=== PATIENT | male | born 1965 | race Caucasian/White ===

== ENCOUNTER → 2018-07-03 08:05 | Outpatient (CLI) | payer OTHER, SELFPAY ==
[2018-07-03 09:41] LABS: Alanine Aminotransferase 45 IU/L (21-72); Albumin 4.5 g/dL (3.5-5.0); Alkaline Phosphatase 44 U/L (38-126); Aspartate Aminotransferase 25 IU/L (17-59); BUN Creatinine Ratio 18.8 (6-22); Bilirubin Total 0.4 mg/dL (0.2-1.3); Blood Urea Nitrogen 15 mg/dL (9-20); Calcium 9.2 mg/dL (8.4-10.2); Carbon Dioxide 30 mmol/L (22-32); Chloride 100 mmol/L (98-107); Cholesterol 172 mg/dL (140-199); Estimated Glomerular Filt Rate > 60.0 mL/min (>60); Globulin 2.3 g/dL (1.7-4.1); Glucose 100 mg/dL (70-100); HDL Cholesterol 50 mg/dL (40-60); HEMOLYSIS < 15 (0-50); LDL Cholesterol Calculated 115 mg/dL (<100); Potassium 4.5 mmol/L (3.4-5.1); Sodium 143 mmol/L (137-145); Total Protein 6.8 g/dL (6.3-8.2); Triglycerides 37 mg/dL (35-150)
== END ==
PROVIDERS: PCP Internal Medicine; Visit Provider Internal Medicine
DX: E78.5 Hyperlipidemia, unspecified (principal)
CPT/HCPCS: 36415; 80053; 80061

== ENCOUNTER → 2019-02-17 12:30 | Outpatient (CLI) | payer OTHER, SELFPAY ==
[2019-02-17 12:55] LABS: Add Manual Diff / Slide Review NO; Basophils Absolute Auto 0 /uL (0-100); Basophils Percent Auto 0.6 % (0-2); Eosinophils Absolute Auto 100 /uL (0-450); Hematocrit 38.3 % (41-53); Hemoglobin 13.2 g/dL (13.5-17.5); Lymphocytes Absolute Auto 1400 /uL (1100-4500); Lymphocytes Percent Auto 21.9 % (25-40); Mean Corpuscular HGB Conc 34.4 % (30-36); Mean Corpuscular Hemoglobin 29.6 PG (26-34); Mean Corpuscular Volume 86.1 fL (80-100); Monocytes Absolute Auto 300 /uL (0-900); Monocytes Percent Auto 4.4 % (3-14); Neutrophils Absolute Auto 4600 /uL (1500-7000); Neutrophils Percent Auto 72.1 % (50-75); Platelet Count 257 X10^3/uL (150-400); Red Blood Cell Count 4.45 X10^6/uL (4.5-5.9); Red Cell Distribution Width 13.2 % (11.6-14.8); White Blood Cell Count 6.4 X10^3/uL (4.5-11.0)
[2019-02-17 13:52] LABS: Alanine Aminotransferase 25 IU/L (21-72); Albumin Globulin Ratio 1.7 (1.0-2.8); Alkaline Phosphatase 51 U/L (38-126); Aspartate Aminotransferase 18 IU/L (17-59); BUN Creatinine Ratio 18.6 (6-22); Bilirubin Total 0.4 mg/dL (0.2-1.3); Blood Urea Nitrogen 13 mg/dL (9-20); Calcium 9.2 mg/dL (8.4-10.2); Carbon Dioxide 30 mmol/L (22-32); Chloride 103 mmol/L (98-107); Estimated Glomerular Filt Rate > 60.0 mL/min (>60); Globulin 2.4 g/dL (1.7-4.1); Glucose 91 mg/dL (70-100); HEMOLYSIS < 15 (0-50); Lipase 117 U/L (23-300); Potassium 4.4 mmol/L (3.4-5.1); Sodium 140 mmol/L (137-145); Total Protein 6.4 g/dL (6.3-8.2)
== END ==
PROVIDERS: Family Provider Internal Medicine; PCP Internal Medicine; Visit Provider Physician Assistant
DX: R19.5 Other fecal abnormalities (principal)
CPT/HCPCS: 36415; 80053; 83690; 85025

== ENCOUNTER → 2019-02-19 08:54 | Outpatient (CLI) | payer OTHER, SELFPAY ==
[2019-02-19 10:48] LABS: Occult Blood 1 Negative (Negative)
[2019-02-19 10:49] LABS: Occult Blood 2 Negative (Negative)
[2019-02-19 10:50] LABS: Occult Blood 3 Negative (Negative)
[2019-02-25 19:57] LABS: Calprotectin, Stool 223.7 mcg/g
== END ==
PROVIDERS: Physician Assistant; Family Provider Internal Medicine; PCP Internal Medicine; Visit Provider Internal Medicine
DX: R19.5 Other fecal abnormalities (principal)
CPT/HCPCS: 82270; 83993; 87045; 87177; 87493; 87899

== ENCOUNTER 2020-04-04 14:27 | Emergency (ER) | payer OTHER, SELFPAY ==
--- NOTE | 2020-04-04 14:54 | ED_ITS ---
HPI - Animal Bite General Chief Complaint: Allergic Reaction Stated Complaint: stung by hornets Time Seen by Provider: 04/04/20 14:42 History of Present Illness HPI narrative: CC: stung by hornets back of left leg HPI: The patient is a 54-year-old male who states that he was stung by a hornets on the back of his left leg just above his belt. Soon after that the patient developed a very deep arm itching discomfort that radiated up his legs chest abdomen and neck to his some left ear and then to he has lips. He stated that immediately after that his body just became acutely itching and burning. While he was in the emergency department and we were evaluating him he developed specific point tenderness arm chest pain in his left chest under he is left ribs which was intense and lasted for about 3 minutes before resolving. He denied any arm pain neck pain jaw pain shoulder pain. He has had no palpitations or racing of his heart. He has had minimal mild shortness of breath. He has had no wheezing or difficulty in breathing. He denies any palpitations cough abdominal pain nausea vomiting diarrhea incontinence of urine or stool. Patient admits to history of migraines and while at was examining the patient he developed [employer] a migraine headache that was typical of his migraines. He denied any fall or head injury. Related Data Home Medications Medication Instructions Recorded Confirmed IBUPROFEN (#IBUPROFEN) 300 mg PO PRN #0 09/29/11 02/21/19 Previous Rx's Medication Instructions Recorded hydrocodone 5 mg-acetaminophen 325 See Rx Instructions PO Q4HP PRN 07/31/19 mg tablet #30 tab diphenhydramine HCl [Benadryl 25 mg PO Q6H #8 tab 04/04/20 Allergy] prednisone 60 mg PO DAILY #3 tab 04/04/20 Allergies Allergy/AdvReac Type Severity Reaction Status Date / Time iodine [IODINE] Allergy Mild Verified 02/21/19 11:31 Review of Systems Review of Systems Narrative: Review of systems were all negative except for those mentioned in the history of present illness. 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 He appears to have generalized of flushing and redness. HEAD: AT/NC EENT: PERRL, FROM of eyes, no discharge, no nystagmus, conjunctiva are injected. EARS:No drainage from the ears, Tympanic membranes intact bilaterally, clear EAC NOSE:No epistaxis or nasal drainage MOUTH: The patient's lower lip is more swollen than the upper lip. The patient appears to almost have blisters on the lip from sunburn according to the patient. The lips were swollen before arm he was stung by the hornet. NECK: Supple, no obvious JVD, Trachea is midline without stridor,.. SPINE: Palpation of the cervical, Thoracic, Lumbar or Sacral spine reveals no gross deformity or tenderness. No CVA tenderness. THORAX: No deformity, retractions, chest wall tenderness. LUNGS: Clear, symmetrical breath sounds without respiratory distress. HEART: Normal heart tones, regular rhythm and rate without murmur. ABDOMEN: Soft, non-tender, normal bowel sounds without guarding, rebound, rigidity or palpable mass. EXTREMITIES: No edema, deformity, tenderness or cyanosis. No specific bites identified the patient has tattoos over his legs. SKIN: No rash, bruising, petechiae or purpura. NEURO: Awake, alert, oriented, conversive, cranial nerves II-XII are symmetrical , moves all 4 extremities and is ambulatory. Initial Vital Signs Initial Vital Signs: Vital Signs Temperature 99.5 F 04/04/20 15:21 Pulse Rate 89 04/04/20 15:21 Respiratory Rate 16 04/04/20 15:21 Blood Pressure 128/83 04/04/20 15:21 Pulse Oximetry 96 04/04/20 15:21 Course Course Course Narrative: 1541: The patient is feeling much better. He is having no itching, no shortness of breath, no chest pain and his headache has almost com pletely resolved and is much improved. Orders Ordered: ED Orders 04/04/20 14:50 Complete Blood Count AUTO DIFF Stat Comprehensive Metabolic Panel Stat 04/04/20 14:51 EKG-12 Lead Stat Discontinued Medications Diphenhydramine HCl (Benadryl) 25 mg IV NOW ONE Stop: 04/04/20 15:00 Last Admin: 04/04/20 15:08 Dose: 25 mg Documented by: LISA Sodium Chloride (Normal Saline 0.9%) 1,000 mls @ 1,000 mls/hr IV BOLUS ONE Stop: 04/04/20 15:50 Last Infusion: 04/04/20 15:53 Dose: 0 mls/hr Documented by: Admin: 04/04/20 15:05 Dose: 1,000 mls/hr Documented by: LISA Ketorolac Tromethamine (Toradol) 30 mg IV NOW ONE Stop: 04/04/20 14:52 Last Admin: 04/04/20 15:05 Dose: 30 mg Documented by: LISA Lorazepam (Ativan) 0.5 mg IV NOW ONE Stop: 04/04/20 14:53 Last Admin: 04/04/20 15:07 Dose: 0.5 mg Documented by: LISA Methylprednisolone (Solu-Medrol 125 Mg Vial) 125 mg IV NOW ONE Stop: 04/04/20 15:01 Last Admin: 04/04/20 15:09 Dose: 125 mg Documented by: LISA Metoclopramide HCl (Reglan) 10 mg IV NOW ONE Stop: 04/04/20 14:52 Last Admin: 04/04/20 15:05 Dose: 10 mg Documented by: LISA Vital Signs Vital signs: Vital Signs - 8 hr 04/04/20 15:21 04/04/20 15:30 04/04/20 16:03 Temperature 99.5 F Pulse Rate 89 63 65 Respiratory Rate 16 16 16 Blood Pressure 128/83 117/71 112/81 Pulse Oximetry 96 95 96 MDM - Animal Bite Medical Records Attestation: I reviewed the patient's medical records. Lab Data Attestation: I reviewed the patient's lab results. Result diagrams: 04/04/20 14:50 04/04/20 14:50 Labs: Lab Results 04/04/20 04/04/20 Range/Units 14:50 14:50 WBC 7.4 (4.5-11.0) X10^3/uL RBC 4.77 (4.5-5.9) X10^6/uL Hgb 14.4 (13.5-17.5) g/dL Hct 41.6 (41-53) % MCV 87.2 (80-100) fL MCH 30.2 (26-34) PG MCHC 34.6 (30-36) % RDW 13.6 (11.6-14.8) % Plt Count 229 (150-400) X10^3/uL Neut % (Auto) 68.4 (50-75) % Lymph % (Auto) 24.2 L (25-40) % [place] % (Auto) 6.2 (3-14) % Eos % (Auto) 0.8 L (2-4) % Baso % (Auto) 0.4 (0-2) % Neut # (Auto) 5100 (7195-4517) /uL Lymph # (Auto) 1800 (2858-6338) /uL [place] # (Auto) 500 (0-900) /uL Eos # (Auto) 100 (0-450) /uL Baso # (Auto) 0 (0-100) /uL Sodium 134 L (137-145) mmol/L Potassium 4.0 (3.4-5.1) mmol/L Chloride 100 (98-107) mmol/L Carbon Dioxide 26 (22-32) mmol/L BUN 14 (9-20) mg/dL Creatinine 0.78 (0.66-1.25) mg/dL Estimated GFR > 60.0 (>60) mL/min BUN/Creatinine Ratio 17.9 (6-22) Glucose 131 H (70-100) mg/dL Calcium 9.4 (8.4-10.2) mg/dL Total Bilirubin 0.8 (0.2-1.3) mg/dL AST 26 (17-59) IU/L ALT 26 (<50) IU/L Alkaline Phosphatase 66 (38-126) U/L Total Protein 7.0 (6.3-8.2) g/dL Albumin 4.4 (3.5-5.0) g/dL Globulin 2.6 (1.7-4.1) g/dL Albumin/Globulin Ratio 1.7 (1.0-2.8) ECG Data Attestation: I personally reviewed and interpreted this ECG as follows: Interpretation: The patient's EKG obtained at 3:02 p.m. revealed a ventricular rate of 62 normal intervals with a p.r. interval of 185 milliseconds a QRS duration of 85 milliseconds and a QTC of 381 milliseconds axis is normal. The patient has a QS wave in lead III and a QS wave in lead II V1. T-waves are inverted in V1 as well as III. T-waves are flat in lead AVF. There are no other acute diagnostic ST or T-wave changes noted. Discharge Plan Departure Patient Disposition: Home Clinical Impression: Allergic reaction to bee sting Headache, migraine Qualifiers: Migraine type: unspecified Status migrainosus presence: without status migrainosus Intractability: not intractable Qualified Code(s): G43.909 - Migraine, unspecified, not intractable, without status migrainosus Discharge Date/Time: 04/04/20 16:04 Instructions: DI for Migraine, DI for General Allergic Reactions Activity Restrictions/Additional Instructions: 1. Follow-up with your primary care physician and be re-evaluated in 48-72 hours as needed. 2, take the prednisone tomorrow as prescribed. 3. Today and tomorrow take Benadryl 25 mg every 6 hours 4. If you develop worsening shortness of breath, worsening rash, recurrent chest pain you need to return to the emergency department. Otherwise you need to follow-up with your primary care physician. 5. For the sunburn on your lips obtain some type of lip balm that has sun protection warm it with your fingers apply it to hear fingers and then to your lips as her fingers will warm it up in soften it up. Prescriptions: New diphenhydramine HCl [Benadryl Allergy] 25 mg tablet 25 mg PO Q6H Qty: 8 RF: 0 prednisone 20 mg tablet 60 mg PO DAILY Qty: 3 RF: 0 No Action IBUPROFEN (#IBUPROFEN) 300 mg PO PRN Qty: 0 RF: 0 hydrocodone-acetaminophen 5-325 mg tablet See Rx Instructions PO Q4HP PRN (Reason: pain) Qty: 30 RF: 0 Referrals: Olvin Roberts MD [Primary Care Provider] -
[2020-04-04 15:04] LABS: Add Manual Diff / Slide Review NO; Basophils Absolute Auto 0 /uL (0-100); Basophils Percent Auto 0.4 % (0-2); Eosinophils Absolute Auto 100 /uL (0-450); Eosinophils Percent Auto 0.8 % (2-4); Hematocrit 41.6 % (41-53); Hemoglobin 14.4 g/dL (13.5-17.5); Lymphocytes Absolute Auto 1800 /uL (1100-4500); Lymphocytes Percent Auto 24.2 % (25-40); Mean Corpuscular HGB Conc 34.6 % (30-36); Mean Corpuscular Hemoglobin 30.2 PG (26-34); Mean Corpuscular Volume 87.2 fL (80-100); Monocytes Absolute Auto 500 /uL (0-900); Monocytes Percent Auto 6.2 % (3-14); Neutrophils Absolute Auto 5100 /uL (1500-7000); Neutrophils Percent Auto 68.4 % (50-75); Platelet Count 229 X10^3/uL (150-400); Red Blood Cell Count 4.77 X10^6/uL (4.5-5.9); Red Cell Distribution Width 13.6 % (11.6-14.8); White Blood Cell Count 7.4 X10^3/uL (4.5-11.0)
[2020-04-04] MEDS: SODIUM CHLORIDE 0.9% 1,000 ML 1000 ML IV (15:05)
[2020-04-04] MEDS: KETOROLAC 60 MG/2 ML VIAL 30 MG IV (15:05)
[2020-04-04] MEDS: METOCLOPRAMIDE 10 MG/2 ML INJ IV (15:05)
[2020-04-04] MEDS: LORazepam 2 MG/ML INJ 0.5 MG IV (15:07)
[2020-04-04] MEDS: diphenhydrAMINE 50 MG/ML VIAL 25 MG IV (15:08)
[2020-04-04] MEDS: methylPREDNISolone 125 MG/2 ML VIAL IV (15:09)
[2020-04-04 15:16] LABS: Alanine Aminotransferase 26 IU/L (<50); Albumin 4.4 g/dL (3.5-5.0); Albumin Globulin Ratio 1.7 (1.0-2.8); Alkaline Phosphatase 66 U/L (38-126); Aspartate Aminotransferase 26 IU/L (17-59); BUN Creatinine Ratio 17.9 (6-22); Bilirubin Total 0.8 mg/dL (0.2-1.3); Blood Urea Nitrogen 14 mg/dL (9-20); Calcium 9.4 mg/dL (8.4-10.2); Carbon Dioxide 26 mmol/L (22-32); Chloride 100 mmol/L (98-107); Estimated Glomerular Filt Rate > 60.0 mL/min (>60); Globulin 2.6 g/dL (1.7-4.1); Glucose 131 mg/dL (70-100); HEMOLYSIS 16 (0-50); Sodium 134 mmol/L (137-145)
[2020-04-04 15:21] VITALS: BP 128/83; PULSE 89; RESP 16; TEMP 37.5; O2SAT 96; BMI 28.3
[2020-04-04 15:30] VITALS: BP 117/71; PULSE 63; RESP 16; O2SAT 95
[2020-04-04 16:03] VITALS: BP 112/81; PULSE 65; RESP 16; O2SAT 96
== END 2020-04-04 16:04 | disposition home or self-care (01) ==
PROVIDERS: Emergency Provider Emergency Medicine; Family Provider Internal Medicine; PCP Internal Medicine
DX: T63.441A Toxic effect of venom of bees, accidental (unintentional), initial encounter (principal); G43.909 Migraine, unspecified, not intractable, without status migrainosus
CPT/HCPCS: 80053; 85025; 93005; 96361; 96374; 96375; 99284; J1200; J1885; J2060; J2765; J2930